=== PATIENT | male | born 1970 | race Caucasian/White ===

== ENCOUNTER 2022-12-24 15:37 | Emergency (ER) | payer OTHER ==
[2022-12-24] MEDS ORDERED: DIPHTH,PERTUSS(ACELL),TET 0.5 ML DISP.SYRIN IM ONE ×2 (15:53→15:56)
[2022-12-24 15:55] VITALS: BP 115/71; RESP 18; TEMP 97.8; BMI 27.3
[2022-12-24 16:12] VITALS: PULSE 87
== END 2022-12-24 16:35 | disposition home or self-care (01) ==
LOC: FER 15:37
PROC: 0HQFXZZ Repair Right Hand Skin, External Approach (ICD-10-PCS; principal; 2022-12-24)
PROC: 3E0234Z Introduction of Serum, Toxoid and Vaccine into Muscle, Percutaneous Approach (ICD-10-PCS; 2022-12-24)
DX: S61.212A Laceration without foreign body of right middle finger without damage to nail, initial encounter (principal); W29.3XXA Contact with powered garden and outdoor hand tools and machinery, initial encounter
CPT/HCPCS: 90715; 99282-25